=== PATIENT | female | born 1990 ===

== ENCOUNTER 2024-05-27 06:35 | Outpatient (REF) | payer OTHER, SELFPAY ==
--- NOTE | ~2024-05-27 | US_ITS ---
EXAMINATION: US THYROID CLINICAL INFORMATION: Single thyroid nodule. COMPARISON: None available. TECHNIQUE: Linear transducer grayscale and color Doppler examination with attention to the region of the thyroid. FINDINGS: SIZE: Measurements of the thyroid lobes and nodules are given in sagittal, anteroposterior and transverse dimensions respectively. Right Thyroid Lobe: 5 x 1 x 1 cm, volume 3 mL. Parenchyma: The gland echotexture is normal. Thyroid vascularity is normal. Left Thyroid Lobe: 5 x 1 x 1 cm, volume 3 mL. Parenchyma: The gland echotexture is normal. Thyroid vascularity is normal. Isthmus: 0.4 cm in maximum AP dimension. Estimated total number of nodules greater than or equal to 1 cm: 0. 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 Location: Midportion right thyroid lobe. Size: 0.4 cm, volume not quantified mL. Nodule characteristics: Composition: Cystic(0). Echogenicity: Anechoic (0). Shape: Round Margins: Well-defined Echogenic Foci: No no ACR TI-RADS total points: 0 ACR TI-RADS category: 0 Left NODES: No lymphadenopathy is seen in the tissue surrounding the thyroid gland. US/US thyroid IMPRESSION: ACR TI-RADS: 0 ACR TI-RADS RECOMMENDATION REFERENCE: Ultrasound-guided fine-needle aspiration, followup ultrasound, no further follow up. * TR1 (0 point) and TR2 (2 points): No FNA or follow up. * TR3 (3 points): FNA if more than or equal to 2.5 cm in maximum dimension, followup ultrasound in 1, 3 and 5 years if 1.5 to 2.4 cm in maximum dimension. * TR4 (4-6 points): FNA if more than or equal to 1.5 cm in maximum dimension, followup ultrasound in 1, 2, 3 and 5 years if 1 to 1.4 cm in maximum dimension. * TR5 (more than or equal to 7 points): FNA if more than or equal to 1 cm in maximum dimension, followup ultrasound every year for 5 years if 0.5 to 0.9 cm in maximum dimension. * TR3, TR4 or TR5 nodules that are below the size threshold for followup receive no follow up. Electronically signed by: Jeffrey Rouse MD 05/30/2024 10:29 AM [facility] [place]
--- OUTSIDE RECORDS SUMMARY | 2024-05-27 06:37 | XMS_ITS ---
Author Name Auto Generated Organization [facility] Community Care Team Providers Care Transverse Abdominal Muscle Surgeon Name Role Phone ANISH MIGUEL Unavailable Unavailable RESULTS US BREAST UNILATERAL Observed: 4 3:00 PM Status: F Source: INVISION [employer] REPOSITORY EXAM: LEFT DIAGNOSTIC MAMMOG POOJA WITH TOMOSYNTHESIS [id number] Exam Date and Time: 06/14/2023 14:30 MST COMPARISON: Baseline screening mammogram dated 05/10/2023. INDICATION: Callback for further evaluation of asymmetry on baseline screening mammogram in the left breast. Estimated Lifetime Breast Cancer Risk: High (20% or greater), as per the Tyrer-Cuzick model endorsed by the [employer] [employer] (ACS). A more detailed breast cancer risk assessment can be considered for appropriate patients. Breast Density: Heterogeneously dense, which may obscure small masses (Category C). FINDINGS: There is a persistent Global asymmetry involving the LEFT posterior upper outer breast. This partially disperses on additional spot compression views likely reflecting asymmetric fibroglandular tissue. Digital breast tomosynthesis was performed. EXAM: ULTRASOUND LEFT BREAST, TARGETED FINDINGS: Area evaluated: 12:00 to 3:00 LEFT breast. There are no solid or cystic masses or areas of abnormal shadowing. There is normal-appearing fibroglandular tissue throughout the LEFT upper outer breast in keeping with the mammographic findings. This is considered negative. IMPRESSION: 1. No findings suspicious for malignancy. BI-RADS Category: 1 - Negative. RECOMMENDATION: 1: Screening Mammogram with Tomosynthesis Bilateral in 1 Year 2: Consider Screening Breast MRI 3: Consider Genetic Counseling/Risk Evaluation COMMENTS: 1. The results and recommendations were given to the patient at the time of the exam. 2. Based on this patient's estimated high lifetime risk for breast cancer, supplemental screening with breast MRI could be considered, according to the [place] [employer] guidelines. It is important to be aware breast MRI acts as a supplemental adjunct to screening mammography, but does not replace it. 3. Based on this patient's risk factors, (which may include family history, breast density, ancestry, and/or personal history of breast cancer/high risk lesion), a detailed breast cancer risk assessment is recommended. This may result in consideration of genetic testing or supplemental breast cancer screening as an adjunct to mammography (such as breast MRI or automated whole breast ultrasound). Our genetic counseling Risk Assessment and Prevention Program can be contacted for scheduling at . Providers wishing to speak with a breast radiologist, please call . Patients with questions about your exam or this report, please call . This study was interpreted by a [facility] radiologist subspecialized in breast imaging. THIS DOCUMENT HAS BEEN ELECTRONICALLY SIGNED: KAROLINA STOLL MD 06/14/2023 15:21 MST Contributed By: ZOEY DIAGNOSTIC MAMM LEFT Observed: 05/31 2:30 PM Status: F Source: [employer] [facility] [employer] EXAM: LEFT DIAGNOSTIC MAMMOG POOJA WITH TOMOSYNTHESIS [id number] Exam Date and Time: 06/14/2023 14:30 MST COMPARISON: Baseline screening mammogram dated 05/10/2023. INDICATION: Callback for further evaluation of asymmetry on baseline screening mammogram in the left breast. Estimated Lifetime Breast Cancer Risk: High (20% or greater), as per the Tyrer-Cuzick model endorsed by the [place] [employer] (ACS). A more detailed breast cancer risk assessment can be considered for appropriate patients. Breast Density: Heterogeneously dense, which may obscure small masses (Category C). FINDINGS: There is a persistent Global asymmetry involving the LEFT posterior upper outer breast. This partially disperses on additional spot compression views likely reflecting asymmetric fibroglandular tissue. Digital breast tomosynthesis was performed. EXAM: ULTRASOUND LEFT BREAST, TARGETED FINDINGS: Area evaluated: 12:00 to 3:00 LEFT breast. There are no solid or cystic masses or areas of abnormal shadowing. There is normal-appearing fibroglandular tissue throughout the LEFT upper outer breast in keeping with the mammographic findings. This is considered negative. IMPRESSION: 1. No findings suspicious for malignancy. BI-RADS Category: 1 - Negative. RECOMMENDATION: 1: Screening Mammogram with Tomosynthesis Bilateral in 1 Year 2: Consider Screening Breast MRI 3: Consider Genetic Counseling/Risk Evaluation COMMENTS: 1. The results and recommendations were given to the patient at the time of the exam. 2. Based on this patient's estimated high lifetime risk for breast cancer, supplemental screening with breast MRI could be considered, according to the [place] [employer] guidelines. It is important to be aware breast MRI acts as a supplemental adjunct to screening mammography, but does not replace it. 3. Based on this patient's risk factors, (which may include family history, breast density, ancestry, and/or personal history of breast cancer/high risk lesion), a detailed breast cancer risk assessment is recommended. This may result in consideration of genetic testing or supplemental breast cancer screening as an adjunct to mammography (such as breast MRI or automated whole breast ultrasound). Our genetic counseling Risk Assessment and Prevention Program can be contacted for scheduling at . Providers wishing to speak with a breast radiologist, please call . Patients with questions about your exam or this report, please call . This study was interpreted by a [facility] radiologist subspecialized in breast imaging. THIS DOCUMENT HAS BEEN ELECTRONICALLY SIGNED: KAROLINA STOLL MD 06/14/2023 15:21 MST Contributed By: ENCOUNTERS ADMIT/DISCHARGE ACCOUNT NUMBER ADMITTING ENCOUNTER CLASS LOC ATION SOURCE 06/13/[id number] Ambulatory Building:[facility] Jada Pendleton
--- OUTSIDE RECORDS SUMMARY | 2024-05-27 06:38 | XMS_ITS ---
Author Organization [facility] Billing Info Address [address] [place], [place] [id number] Care Team Providers Care Healthcare Educator Name Role Phone HENLEYDENYS WISEMANA Primary Care Provider DANE MORENO Unavailable [phone] ANISH CAMPO Unavailable Unavailable REASON FOR VISIT Prior Authorization Needed Encounters Encounter [facility] Date [id number] [address] [place], [place] [id number] 06/20/2023 ZULEMA HENLEY Plan Of Treatment No Information Progress Notes * [employer] FINNEYB:1990 (33 yo F)Acc No.[id number]:06/20/2023 Patient:?EDISNANCYAlvinaa :1990???Age:33 Y???Sex:Female Address:[address] [place] [id number] * true * Date:? Generated for [employer] wilberto/Agapito/eTransmitting on:?05/27/2024 04:38 AM MST
== END 2024-05-27 06:36 | disposition home or self-care (01) ==
LOC: HO.UMASIMG 06:35
PROVIDERS: Visit Provider Family Medicine
DX: E04.1 Nontoxic single thyroid nodule (principal)
CPT/HCPCS: 76536

== ENCOUNTER → 2024-05-27 14:00 | Outpatient (BNV) | payer OTHER, SELFPAY | PROVIDERS: Visit Provider Radiology Diagnostic Radiology | DX: E04.1 Nontoxic single thyroid nodule (principal) | CPT/HCPCS: 76536 ==